=== PATIENT | female | born 1960 | race Caucasian/White ===

== ENCOUNTER → 2016-05-29 | Day surgery (SDC) | payer OTHER, SELFPAY ==
[2016-05-29 08:37] LABS: HCT 38.8 % (37.0-47.0); HGB 12.7 g/dl (12.5-16.0); MCH 29.3 pg (25.0-31.0); MCHC 32.7 g/dL (32.0-36.0); MCV 89.4 fL (78.0-100.0); MPV 10.3 fL (6.0-9.5); RBC 4.34 M/uL (4.20-5.40); RDW 14.5 % (11.5-14.0); WBC 6.5 K/uL (4.0-10.5)
[2016-05-29 08:57] LABS: ALBUMIN 4.3 g/dL (3.5-5.0); BILIRUBIN - TOTAL 0.8 mg/dL (0.1-1.0); CREATININE 0.9 mg/dL (0.5-1.0); GLOBULIN (CALCULATION) 2.9 g/dL (2.2-4.2); POTASSIUM 3.8 mmol/L (3.5-5.1); TOTAL PROTEIN 7.2 g/dL (6.4-8.3)
== END | disposition home or self-care (01) ==
LOC: FAS 09:02
PROVIDERS: Surgery
DX: I87.2 Venous insufficiency (chronic) (peripheral) (principal); N20.0 Calculus of kidney; E03.9 Hypothyroidism, unspecified; G47.30 Sleep apnea, unspecified; I10 Essential (primary) hypertension; E78.5 Hyperlipidemia, unspecified; Z88.5 Allergy status to narcotic agent; Z88.2 Allergy status to sulfonamides; Z88.1 Allergy status to other antibiotic agents; Z88.8 Allergy status to other drugs, medicaments and biological substances; G30.9 Alzheimer's disease, unspecified; F41.9 Anxiety disorder, unspecified; M19.90 Unspecified osteoarthritis, unspecified site; E66.01 Morbid (severe) obesity due to excess calories; Z68.44 Body mass index [BMI] 60.0-69.9, adult; Z90.49 Acquired absence of other specified parts of digestive tract; Z96.659 Presence of unspecified artificial knee joint; Z90.89 Acquired absence of other organs; Z98.890 Other specified postprocedural states; Z81.8 Family history of other mental and behavioral disorders; Z87.891 Personal history of nicotine dependence; Z82.61 Family history of arthritis; Z82.3 Family history of stroke; Z80.0 Family history of malignant neoplasm of digestive organs; Z82.49 Family history of ischemic heart disease and other diseases of the circulatory system; Z83.3 Family history of diabetes mellitus; Z83.42 Family history of familial hypercholesterolemia; Z82.5 Family history of asthma and other chronic lower respiratory diseases; Z80.3 Family history of malignant neoplasm of breast; Z79.899 Other long term (current) drug therapy
CPT/HCPCS: 36415; 71010; 76000; 80053; C1788; J0690; J1644; J1885; J2704

== ENCOUNTER 2016-06-24 10:15 | Emergency (ER) | payer OTHER ==
[2016-06-24 12:10] LABS: BILIRUBIN NEGATIVE (NEGATIVE); BLOOD NEGATIVE Ery/uL (NEGATIVE); CLARITY CLEAR (CLEAR); COLOR YELLOW (YELLOW); GLUCOSE (U) NORMAL (NORMAL); KETONE (U) NEGATIVE (NEGATIVE); LEUKOCYTES 1+ Leu/uL (NEGATIVE); NITRITE POSITIVE (NEGATIVE); PROTEIN NEGATIVE (NEGATIVE); SPECIFIC GRAVITY >=1.030 (1.001-1.030); UROBILINOGEN 0.2 mg/dL (0.2-1.0); pH 5.5 (5.0-9.0)
[2016-06-24 12:14] LABS: URINARY WBC TNTC
[2016-06-24 12:15] LABS: BACTERIA 2+; URINARY RBC RARE
== END 2016-06-24 12:57 | disposition home or self-care (01) ==
LOC: FER 10:15
PROVIDERS: Internal Medicine
DX: M54.32 Sciatica, left side (principal); N39.0 Urinary tract infection, site not specified; I10 Essential (primary) hypertension; E03.9 Hypothyroidism, unspecified; Z88.2 Allergy status to sulfonamides; Z79.899 Other long term (current) drug therapy
CPT/HCPCS: 81001; J2930

== ENCOUNTER 2021-06-28 19:43 | Emergency (ER) | payer MEDICARE ==
[~2021-06-28 19:43] MED LIST: ALLOPURINOL300 MG PO; AMLODIPINE BES2.5 MG PO; BUMETANIDE2 MG PO; CITALOPRAM 40MG40 MG PO; COLCRYS0.6 MG PO; DESYREL50 MG PO; FENOFIBRATE160 MG PO; HCTZ25 MG PO; LEVOTHYROXINE125 MCG PO; LISINOPRIL 20MG20 MG PO; MACROBID100 MG PO; NAPROXEN500 MG PO; OMEPRAZOLE40 MG PO; POTASSIUM CHLO10 ME2 PO
== END 2021-06-28 22:50 | disposition home or self-care (01) ==
LOC: FER 19:43
DX: M25.561 Pain in right knee (principal); I10 Essential (primary) hypertension; Z88.6 Allergy status to analgesic agent; Z88.5 Allergy status to narcotic agent; Z88.2 Allergy status to sulfonamides; Z88.1 Allergy status to other antibiotic agents; W18.30XA Fall on same level, unspecified, initial encounter; Y92.009 Unspecified place in unspecified non-institutional (private) residence as the place of occurrence of the external cause
CPT/HCPCS: 73560

== ENCOUNTER 2021-10-19 08:26 | Emergency (ER) | payer MEDICARE, OTHER ==
[2021-10-19 10:43] LABS: BASOPHIL 0.6 % (0-2); EOSINOPHIL 4.8 % (0-5); HCT 40.3 % (37.0-47.0); HGB 12.7 g/dl (12.5-16.0); LYMPHOCYTE 18.8 % (15-48); MCH 29.7 pg (25.0-31.0); MCHC 31.5 g/dL (32.0-36.0); MCV 94.2 fL (78.0-100.0); MPV 9.6 fL (6.0-9.5); NEUTROPHIL 67.5 % (41-80); NRBC 0; PLT 169 K/uL (150-400); RBC 4.28 M/uL (4.20-5.40); RDW 13.6 % (11.5-14.0)
[2021-10-19 11:41] LABS: ALBUMIN 3.1 g/dL (3.4-5.0); BILIRUBIN - TOTAL 0.5 mg/dL (0.2-1.0); CREATININE 0.8 mg/dL (0.51-0.95); GLOBULIN (CALCULATION) 3.7 g/dL; POTASSIUM 4.7 mmol/L (3.5-5.1); TOTAL PROTEIN 6.8 g/dL (6.4-8.2)
[2021-10-19 11:46] LABS: BILIRUBIN NEGATIVE (NEGATIVE); BLOOD 3+ Ery/uL (NEGATIVE); COLOR YELLOW (YELLOW); GLUCOSE (U) NORMAL (NORMAL); LEUKOCYTES 2+ Leu/uL (NEGATIVE); NITRITE NEGATIVE (NEGATIVE); PROTEIN NEGATIVE (NEGATIVE); SPECIFIC GRAVITY 1.025 (1.001-1.030); UROBILINOGEN 0.2 mg/dL (0.2-1.0)
[2021-10-19 11:48] LABS: CLARITY HAZY (CLEAR)
[2021-10-19 12:15] LABS: BACTERIA 1+; URINARY WBC TNTC
[2021-10-19 12:16] LABS: YEAST PRESENT
[2021-10-19] MEDS ORDERED: CEFDINIR300 MG PO (14:17)
== END 2021-10-19 16:16 | disposition home or self-care (01) ==
LOC: FER 08:26
PROVIDERS: Emergency Medicine
DX: N39.0 Urinary tract infection, site not specified (principal); R44.3 Hallucinations, unspecified; Z88.1 Allergy status to other antibiotic agents; Z88.2 Allergy status to sulfonamides; Z88.5 Allergy status to narcotic agent
CPT/HCPCS: 36415; 71045; 80053; 81001; 83605; 83735; 84145; 84484; 85025; 87088; 93005; J0696

== ENCOUNTER 2021-12-27 03:02 | Emergency (ER) | payer MEDICARE, OTHER ==
[~2021-12-27 03:02] MED LIST changes: +CEFDINIR300 MG PO; +KEFLEX250 MG PO
[2021-12-27 04:25] LABS: BASOPHIL 0.7 % (0-2); EOSINOPHIL 5.9 % (0-5); HCT 35.8 % (37.0-47.0); HGB 11.5 g/dl (12.5-16.0); LYMPHOCYTE 16.9 % (15-48); MCH 29.5 pg (25.0-31.0); MCHC 32.1 g/dL (32.0-36.0); MCV 91.8 fL (78.0-100.0); MONOCYTE 11.8 % (0-12); MPV 9.8 fL (6.0-9.5); NEUTROPHIL 63.8 % (41-80); NRBC 0.2; PLT 227 K/uL (150-400); RDW 14.6 % (11.5-14.0)
[2021-12-27 04:44] LABS: ALBUMIN 2.8 g/dL (3.4-5.0); BILIRUBIN - TOTAL 0.5 mg/dL (0.2-1.0); BUN/CREAT RATIO (CALC) 18.8 RATIO; CREATININE 0.85 mg/dL (0.51-0.95); GLOBULIN (CALCULATION) 4.1 g/dL; POTASSIUM 4.2 mmol/L (3.5-5.1); TOTAL PROTEIN 6.9 g/dL (6.4-8.2)
[2021-12-27 05:33] LABS: CORONAVIRUS 2019 SARS-COV-2 NEGATIVE (NEGATIVE); INFLUENZA A NAA NEGATIVE (NEGATIVE)
[2021-12-27] MEDS ORDERED: AZITHROMYCIN250 MG PO (07:33)
== END 2021-12-27 11:03 | disposition home or self-care (01) ==
LOC: FER 03:02
PROVIDERS: Emergency Medicine
DX: J18.9 Pneumonia, unspecified organism (principal); R07.89 Other chest pain; I10 Essential (primary) hypertension; Z88.6 Allergy status to analgesic agent; Z88.1 Allergy status to other antibiotic agents; Z88.2 Allergy status to sulfonamides; Z88.8 Allergy status to other drugs, medicaments and biological substances; Z20.822 Contact with and (suspected) exposure to COVID-19
CPT/HCPCS: 36415; 71045; 80053; 83880; 84484; 85025; 93005; J1885; U0002